=== PATIENT | male | born 1925 | race Caucasian/White ===

== ENCOUNTER → 2016-11-26 | Outpatient (REF) | payer MEDICARE, OTHER ==
[~2016-11-26] MED LIST: /ATOR40TA PO; /BRIN1OS OS; ASPI325T PO; AVAP300T PO; CHLO25TA3 PO; CO Q100C10 PO; LEVO25TA4 PO; MAGN400T5 PO; POTA20LI3 PO; TRAV0.00 OU
[2016-11-26 13:15] LABS: FOLATE 16.3 NG/ML
== END ==
LOC: M SFHCADAM 08:06
PROVIDERS: ATTEND Physician Assistant
DX: D50.9 Iron deficiency anemia, unspecified (principal); I11.9 Hypertensive heart disease without heart failure

== ENCOUNTER → 2016-11-26 | Outpatient (REF) | payer MEDICARE, OTHER ==
[2016-11-26 13:38] LABS: ALBUMIN 3.8 GM/DL (3.2-5.2); ALBUMIN/GLOBULIN RATIO 1.27 (1.00-1.93); ALKALINE PHOSPHATASE 87 U/L (45-117); ALT/SGPT 20 U/L (12-78); ANION GAP 7 MEQ/L (8-16); AST/SGOT 16 U/L (15-37); BLOOD UREA NITROGEN 13 MG/DL (7-18); CALCIUM LEVEL 8.7 MG/DL (8.8-10.2); CARBON DIOXIDE LEVEL 29 MEQ/L (21-32); CHLORIDE LEVEL 101 MEQ/L (98-107); CREATININE FOR GFR 1.05 MG/DL (0.70-1.30); GLOMERULAR FILTRATION RATE > 60.0 (>35); GLUCOSE, FASTING 99 MG/DL (83-110); POTASSIUM SERUM 4.5 MEQ/L (3.5-5.1); SODIUM LEVEL 137 MEQ/L (136-145); TOTAL PROTEIN 6.8 GM/DL (6.4-8.2)
== END ==
LOC: M LABDRWAD 13:12
PROVIDERS: ATTEND Internal Medicine Cardiovascular Disease
DX: I11.9 Hypertensive heart disease without heart failure (principal)

== ENCOUNTER → 2016-12-03 | Outpatient (REF) | payer MEDICARE, OTHER ==
[2016-12-03 13:29] LABS: MEAN CORPUSCULAR HEMOGLOBIN 32.5 pg (27.0-33.0); MEAN CORPUSCULAR HGB CONC 33.6 g/dl (32.0-36.5); MEAN CORPUSCULAR VOLUME 96.7 fl (80.0-96.0); RED CELL DISTRIBUTION WIDTH 12.4 % (11.5-14.5); WHITE BLOOD COUNT 6.5 K/mm3 (4.0-10.0)
[2016-12-03 13:52] LABS: FREE T4 0.93 NG/DL (0.76-1.46)
== END ==
LOC: M SFHCADAM 10:27
PROVIDERS: ATTEND Physician Assistant
DX: E53.8 Deficiency of other specified B group vitamins (principal); E03.9 Hypothyroidism, unspecified; E83.42 Hypomagnesemia
CPT/HCPCS: 83735; 84439; 84443; 85027; G0463

== ENCOUNTER → 2016-12-09 | Outpatient (CLI) | payer MEDICARE, OTHER ==
--- NOTE | 2016-12-10 17:02 | REP ---
CHEST, TWO VIEWS: COMPARISON: Portable examination obtained 01/27/2013, which is latest prior. The cardiomediastinal silhouette is unchanged. The heart is not enlarged. The pleural angles are unchanged. There is chronic minimal left CP angle blunting. In the right middle lobe lateral segment there is a new subtle asymmetric 2.4 cm sized opacity. There are no other significant lung field changes. There is no change in the osseous structures. IMPRESSION: New right middle lobe opacity of uncertain etiology. CT examination of the chest would be warranted. Signed by Carlos Jewell DO 12/16/2016 06:43 P
== END ==
LOC: M ADAMS 15:14
PROVIDERS: ATTEND Physician Assistant
DX: R06.09 Other forms of dyspnea (principal); J20.9 Acute bronchitis, unspecified; R91.8 Other nonspecific abnormal finding of lung field
CPT/HCPCS: 71020; G0463

== ENCOUNTER → 2016-12-15 | Outpatient (CLI) | payer MEDICARE, OTHER ==
--- NOTE | 2016-12-15 08:47 | REP ---
Clinical: Abnormal opacity on recent chest x-ray. Comparison: Chest x-ray dated 12/09/2016. 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 No acute consolidation, nodule or mass lesion is appreciated. Incidental note is made of a calcified granuloma in the periphery of the left lower lobe (image 65). The abnormal density apparent on recent chest x-ray does not correspond to a finding on current CT and may have reflected a small area of atelectasis. No pleural effusion/reaction. No pneumothorax. No obvious adenopathy. Atherosclerotic changes to the thoracic aorta and coronary arteries noted. No evidence for cardiomegaly or pericardial effusion. Limited evaluation of the upper abdomen demonstrates normal bilateral adrenal glands as well as presumed bilateral renal cysts measuring up to approximately 4.1 cm in the mid pole left kidney. Impression: 1. Chronic age-related changes as described above. No acute mediastinal or pleuroparenchymal process. The abnormal density on recent chest x-ray likely represented focal area of atelectasis which has subsequently resolved. 2. Atherosclerotic changes to the thoracic aorta and coronary arteries. 3. Renal cysts. Signed by Robert Soto MD 12/15/2016 08:39 A
== END ==
LOC: M RAD 07:01
PROVIDERS: ATTEND Family Medicine
DX: R93.8 Abnormal findings on diagnostic imaging of other specified body structures (principal); N28.1 Cyst of kidney, acquired; I25.10 Atherosclerotic heart disease of native coronary artery without angina pectoris

== ENCOUNTER → 2017-01-06 | Outpatient (REF) | payer MEDICARE, OTHER ==
[2017-01-06 13:05] LABS: ANION GAP 6 MEQ/L (8-16); BLOOD UREA NITROGEN 16 MG/DL (7-18); CARBON DIOXIDE LEVEL 33 MEQ/L (21-32); CHLORIDE LEVEL 94 MEQ/L (98-107); CREATININE FOR GFR 1.09 MG/DL (0.70-1.30); GLOMERULAR FILTRATION RATE > 60.0 (>35); GLUCOSE, FASTING 99 MG/DL (83-110); POTASSIUM SERUM 4.4 MEQ/L (3.5-5.1); SODIUM LEVEL 133 MEQ/L (136-145)
== END ==
LOC: M SFHCADAM 08:21
PROVIDERS: ATTEND Physician Assistant
DX: I11.9 Hypertensive heart disease without heart failure (principal)